=== PATIENT | female | born 1990 | race Hispanic/Latino ===

== ENCOUNTER 2021-04-27 02:34 | Inpatient (IN) | payer BC ==
[~2021-04-27] VITALS: Ht 162.6 cm; Wt 127.0 kg
[2021-04-27] MEDS ORDERED: ONDANSETRON HCL INJ 2MG/ML 2ML 2 MG/ML VIAL IV STA (03:21)
[2021-04-27] MEDS ORDERED: KETOROLAC TROMETHAMINE 30 MG/ML VIAL IV STA (03:21)
[2021-04-27] MEDS ORDERED: SODIUM CHLORIDE 0.9% 1000ML 1,000 ML IV SCH (03:30)
[2021-04-27] MEDS ORDERED: KETOROLAC TROMETHAMINE 30 MG/ML VIAL ONE (03:33)
[2021-04-27] MEDS ORDERED: SODIUM CHLORIDE 0.9% 1000ML 1,000 ML ONE (03:33)
[2021-04-27] MEDS ORDERED: ONDANSETRON HCL INJ 2MG/ML 2ML 2 MG/ML VIAL ONE (03:33)
[2021-04-27] MEDS ORDERED: SODIUM CHLORIDE 0.9% 50ML 50 ML ONE (04:36)
[2021-04-27] MEDS ORDERED: IOPAMIDOL 370 MG/ML 200 ML INFUS..BTL INJ ONE (04:36)
[2021-04-27] MEDS ORDERED: METRONIDAZOLE 500MG/NS 100ML 100 ML IV SCH (04:45)
[2021-04-27] MEDS: LEVOFLOXACIN 750MG/D5W 150ML 150 ML IV SCH (04:57)
[2021-04-27] MEDS ORDERED: LEVOFLOXACIN 750MG/D5W 150ML 150 ML IV ONE (04:59)
[2021-04-27 07:39] VITALS: BP 130/81
[2021-04-27 08:00] VITALS: BP 130/81
[2021-04-27] MEDS: SODIUM CHLORIDE 0.9% 1000ML 1,000 ML IV SCH ×3 (08:13→21:17)
[2021-04-27] MEDS: FAMOTIDINE 20 MG/2 ML VIAL IV SCH ×2 (08:13→15:57)
[2021-04-27 08:30] VITALS: BP 130/81
[2021-04-27] MEDS: ONDANSETRON HCL INJ 2MG/ML 2ML 2 MG/ML VIAL IV PRN (08:51)
[2021-04-27] MEDS: HYDROMORPHONE 1MG/1ML INJ IV PRN ×2 (08:51→20:14)
[2021-04-27] MEDS: CLINDAMYCIN 300MG 50 ML IV SCH ×2 (10:22→15:57)
[2021-04-27 12:14] LABS: BASOPHILS # (AUTO) 0.1 (0.0-0.1); BASOPHILS % 0.3 % (0.0-1.0); EOSINOPHILS % 0.2 % (0.0-6.0); HEMATOCRIT 37.3 % (34.2-44.1); LYMPHOCYTES # (AUTO) 1.3 (1.0-3.2); MEAN CORPUSCULAR HEMOGLOBIN 27.5 pg (28-32); MEAN CORPUSCULAR HGB CONC 32.2 g/dL (31-35); MEAN CORPUSCULAR VOLUME 85.6 fL (81-99); MONOCYTES # (AUTO) 1.1 (0.2-0.8); MONOCYTES % 6.8 % (4.4-11.3); NEUTROPHILS # (AUTO) 13.7 (2.1-6.9); NEUTROPHILS % 84.3 % (38.7-80.0); PLATELET COUNT 196 x10e3/uL (140-360); RED BLOOD COUNT 4.36 x10e6/uL (3.6-5.1); RED CELL DISTRIBUTION WIDTH 12.8 % (11.7-14.4)
[2021-04-27 12:37] LABS: ANION GAP 11.6 mmol/L (8-16); CREATININE, SERUM 0.65 mg/dL (0.57-1.11); POTASSIUM 3.6 mmol/L (3.5-5.1)
[2021-04-27 12:38] LABS: ALBUMIN 3.3 g/dL (3.5-5.0); BILIRUBIN,DIRECT 0.4 mg/dL (0.0-0.5); CHOL/HDL RATIO 2.9 (3.0-3.6)
[2021-04-27 15:00] VITALS: BP 130/77
[2021-04-27 20:00] VITALS: BP 128/72
[2021-04-28] VITALS: BP 122/75
[2021-04-28] MEDS: CLINDAMYCIN 300MG 50 ML IV SCH ×3 (00:39→16:17)
[2021-04-28] MEDS: LEVOFLOXACIN 750MG/D5W 150ML 150 ML IV SCH (03:44)
[2021-04-28 04:00] VITALS: BP 124/60
[2021-04-28] MEDS: HYDROMORPHONE 1MG/1ML INJ IV PRN ×4 (04:29→22:03)
[2021-04-28] MEDS: SODIUM CHLORIDE 0.9% 1000ML 1,000 ML IV SCH ×3 (04:34→20:50)
[2021-04-28] MEDS ORDERED: BUPIVACAINE 0.25% 30ML SDV ONE (07:38)
[2021-04-28] MEDS ORDERED: ACETAMINOPHEN 1000 MG/100 ML 100 ML IV ONE (07:47)
[2021-04-28] MEDS: FAMOTIDINE 20 MG/2 ML VIAL IV SCH ×2 (09:00→16:17)
[2021-04-28] MEDS ORDERED: FENTANYL CITRATE/PF 100MCG/2 ML INJ ONE ×2 (10:36→11:45)
[2021-04-28 11:16] LABS: BASOPHILS % 0.2 % (0.0-1.0); HEMATOCRIT 37.6 % (34.2-44.1); HEMOGLOBIN 12.1 g/dL (12.0-16.0); LYMPHOCYTES # (AUTO) 0.6 (1.0-3.2); LYMPHOCYTES % 3.6 % (18.0-39.1); MEAN CORPUSCULAR HGB CONC 32.2 g/dL (31-35); MONOCYTES # (AUTO) 0.4 (0.2-0.8); MONOCYTES % 2.2 % (4.4-11.3); NEUTROPHILS # (AUTO) 15.9 (2.1-6.9); NEUTROPHILS % 93.6 % (38.7-80.0); PLATELET COUNT 187 x10e3/uL (140-360); RED BLOOD COUNT 4.32 x10e6/uL (3.6-5.1); RED CELL DISTRIBUTION WIDTH 12.6 % (11.7-14.4)
[2021-04-28] MEDS ORDERED: MIDAZOLAM HCL 2 MG/2 ML VIAL ONE (11:45)
[2021-04-28 11:50] LABS: ANION GAP 15.7 mmol/L (8-16); CALCIUM 8.2 mg/dL (8.4-10.2); CREATININE, SERUM 0.66 mg/dL (0.57-1.11); POTASSIUM 3.7 mmol/L (3.5-5.1)
[2021-04-28 11:57] VITALS: BP 103/52
[2021-04-28] MEDS ORDERED: NEOSTIGMINE 1 MG/ML 10ML VIAL ONE (12:10)
[2021-04-28] MEDS ORDERED: DEXAMETHASONE SOD PHOS INJ 4 MG/ML SDV ONE (12:10)
[2021-04-28] MEDS ORDERED: ONDANSETRON HCL INJ 2MG/ML 2ML 2 MG/ML VIAL ONE (12:10)
[2021-04-28] MEDS ORDERED: SEVOFLURANE INHAL SOLN 250 ML PEN BTL ONE (12:10)
[2021-04-28] MEDS ORDERED: PROPOFOL IV EMULSION 10 MG/ML 20 ML VIAL ONE (12:10)
[2021-04-28] MEDS ORDERED: ROCURONIUM BROMIDE 10 MG/ML 5ML VIAL IV ONE (12:10)
[2021-04-28] MEDS ORDERED: GLYCOPYRROLATE INJ 0.2 MG/ML VIAL ONE (12:10)
[2021-04-28] MEDS ORDERED: POVIDONE IODINE 0.05% 0.05 % ML PO ONE (12:10)
[2021-04-28] MEDS ORDERED: EPHEDRINE SULFATE INJ 50 MG/ML VIAL ONE (12:10)
[2021-04-28] MEDS ORDERED: LIDOCAINE HCL 2% LOCAL INJ 5 ML SDV VIAL INJ ONE (12:10)
[2021-04-28] MEDS ORDERED: KETOROLAC TROMETHAMINE 30 MG/ML VIAL ONE (12:10)
[2021-04-28 12:23] VITALS: BP 103/52
[2021-04-28] MEDS: ONDANSETRON HCL INJ 2MG/ML 2ML 2 MG/ML VIAL IV PRN ×3 (12:37→22:03)
[2021-04-28 15:57] VITALS: BP 91/52
[2021-04-28 20:00] VITALS: BP 125/71
[2021-04-29] VITALS (7 sets, daily range): BP systolic 97–116; BP diastolic 53–74
[2021-04-29] MEDS: CLINDAMYCIN 300MG 50 ML IV SCH ×3 (00:12→16:00)
[2021-04-29] MEDS: ONDANSETRON HCL INJ 2MG/ML 2ML 2 MG/ML VIAL IV PRN ×2 (02:21→07:26)
[2021-04-29] MEDS: HYDROMORPHONE 1MG/1ML INJ IV PRN ×4 (02:21→17:54)
[2021-04-29] MEDS: LEVOFLOXACIN 750MG/D5W 150ML 150 ML IV SCH (03:43)
[2021-04-29] MEDS: SODIUM CHLORIDE 0.9% 1000ML 1,000 ML IV SCH ×3 (04:55→21:03)
[2021-04-29] MEDS: FAMOTIDINE 20 MG/2 ML VIAL IV SCH ×2 (08:23→17:14)
[2021-04-29 11:04] LABS: BASOPHILS % 0.2 % (0.0-1.0); EOSINOPHILS % 0.1 % (0.0-6.0); HEMATOCRIT 36.2 % (34.2-44.1); HEMOGLOBIN 11.6 g/dL (12.0-16.0); LYMPHOCYTES # (AUTO) 1.4 (1.0-3.2); LYMPHOCYTES % 9.5 % (18.0-39.1); MEAN CORPUSCULAR HEMOGLOBIN 27.8 pg (28-32); MEAN CORPUSCULAR VOLUME 86.8 fL (81-99); MONOCYTES # (AUTO) 0.9 (0.2-0.8); NEUTROPHILS # (AUTO) 12.7 (2.1-6.9); NEUTROPHILS % 83.7 % (38.7-80.0); PLATELET COUNT 201 x10e3/uL (140-360); RED BLOOD COUNT 4.17 x10e6/uL (3.6-5.1); RED CELL DISTRIBUTION WIDTH 12.8 % (11.7-14.4)
[2021-04-29 11:28] LABS: ANION GAP 12.5 mmol/L (8-16); CALCIUM 8.5 mg/dL (8.4-10.2); CREATININE, SERUM 0.63 mg/dL (0.57-1.11); POTASSIUM 3.5 mmol/L (3.5-5.1)
[2021-04-29 11:29] LABS: PHOSPHORUS 1.8 MG/DL (2.3-4.7)
[2021-04-29] MEDS ORDERED: HYDROCODONE/APAP 5MG-325MG TAB PO PRN (19:15)
[2021-04-29] MEDS ORDERED: BISACODYL 10 MG SUPP PR PRN (19:15)
[2021-04-30] VITALS: BP 129/77
[2021-04-30] MEDS: CLINDAMYCIN 300MG 50 ML IV SCH ×2 (01:05→09:26)
[2021-04-30] MEDS: LEVOFLOXACIN 750MG/D5W 150ML 150 ML IV SCH (04:45)
[2021-04-30] MEDS: SODIUM CHLORIDE 0.9% 1000ML 1,000 ML IV SCH ×2 (05:36→13:00)
[2021-04-30 07:59] LABS: BASOPHILS # (AUTO) 0.1 (0.0-0.1); BASOPHILS % 0.5 % (0.0-1.0); EOSINOPHILS # (AUTO) 0.2 (0.0-0.4); EOSINOPHILS % 1.2 % (0.0-6.0); HEMATOCRIT 38.3 % (34.2-44.1); HEMOGLOBIN 12.4 g/dL (12.0-16.0); LYMPHOCYTES # (AUTO) 1.4 (1.0-3.2); LYMPHOCYTES % 11.6 % (18.0-39.1); MEAN CORPUSCULAR HEMOGLOBIN 28.1 pg (28-32); MEAN CORPUSCULAR HGB CONC 32.4 g/dL (31-35); MEAN CORPUSCULAR VOLUME 86.8 fL (81-99); MONOCYTES # (AUTO) 0.8 (0.2-0.8); MONOCYTES % 6.1 % (4.4-11.3); NEUTROPHILS # (AUTO) 9.9 (2.1-6.9); NEUTROPHILS % 80.1 % (38.7-80.0); PLATELET COUNT 169 x10e3/uL (140-360); RED BLOOD COUNT 4.41 x10e6/uL (3.6-5.1); RED CELL DISTRIBUTION WIDTH 12.6 % (11.7-14.4)
[2021-04-30 08:16] VITALS: BP 122/67
[2021-04-30 08:23] LABS: ANION GAP 14.4 mmol/L (8-16); CALCIUM 8.3 mg/dL (8.4-10.2); CREATININE, SERUM 0.63 mg/dL (0.57-1.11); POTASSIUM 3.4 mmol/L (3.5-5.1)
[2021-04-30 08:24] VITALS: BP 122/67
[2021-04-30 08:40] LABS: MAGNESIUM 1.8 MG/DL (1.3-2.1); PHOSPHORUS 2.3 MG/DL (2.3-4.7)
[2021-04-30] MEDS ORDERED: DOCUSATE SODIUM 100 MG CAP PO SCH (09:00)
[2021-04-30] MEDS: FAMOTIDINE 20 MG/2 ML VIAL IV SCH (09:26)
[2021-04-30 11:36] VITALS: BP 94/61
[2021-04-30] MEDS ORDERED: COLACE100 MG PO (15:15)
[2021-04-30] MEDS ORDERED: CLINDAMYCIN HC150 MG PO (15:15)
[2021-04-30] MEDS ORDERED: CIPRO250 MG PO (15:15)
[2021-04-30] MEDS ORDERED: TYLENOL325 MG PO (15:15)
[2021-04-30] MEDS ORDERED: FAMOTIDINE20 MG PO (15:15)
== END 2021-04-30 16:33 | disposition home or self-care (01) | DRG 418 ==
LOC: FSED 03:10 → ERHOLD 04:48 → MED/SURG 07:31
PROVIDERS: ADMIT Internal Medicine; ATTEND Internal Medicine
PROC: 0FT44ZZ Resection of Gallbladder, Percutaneous Endoscopic Approach (ICD-10-PCS; principal; 2021-04-28 08:00)
DX: K80.00 Calculus of gallbladder with acute cholecystitis without obstruction (principal); Z68.42 Body mass index [BMI] 45.0-49.9, adult; Z88.0 Allergy status to penicillin; E66.01 Morbid (severe) obesity due to excess calories; K83.8 Other specified diseases of biliary tract
CPT/HCPCS: 36415; 71046; 74177; 74181; 80048; 80053; 80061; 80076; 81003; 81025; 83036; 83735; 84100; 85025; 88304; 94799; 99284; J1100; J1170; J1885; J2001; J2250; J2405; J2710; J3010; J7030; Q9967; U0002

== ENCOUNTER 2022-09-20 01:49 | Emergency (ER) | payer BC ==
[~2022-09-20] VITALS: Ht 162.6 cm; Wt 127.0 kg
[~2022-09-20 01:49] MED LIST: CIPRO250 MG PO; CLINDAMYCIN HC150 MG PO; COLACE100 MG PO; FAMOTIDINE20 MG PO; TYLENOL325 MG PO
[2022-09-20] MEDS ORDERED: IBUPROFEN 400 MG TAB PO STA (02:06)
== END 2022-09-20 05:04 | disposition home or self-care (01) ==
LOC: ER 01:54
DX: S43.031A Inferior subluxation of right humerus, initial encounter (principal); V86.69XA Passenger of other special all-terrain or other off-road motor vehicle injured in nontraffic accident, initial encounter; Y92.89 Other specified places as the place of occurrence of the external cause
CPT/HCPCS: 99283